=== PATIENT | male | born 1980 | race Two or more races ===

== ENCOUNTER 2024-12-23 17:24 | Emergency (ER) | payer MEDICAID, SELFPAY ==
[2024-12-23] VITALS (7 sets, daily range): BP systolic 100–112; BP diastolic 62–75; PULSE 60–104; RESP 16–19; TEMP 36.7–37; O2SAT 95–98; BMI 30.3
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
[2024-12-23 18:36] LABS: Basophils # (Auto) 0.0 Thou/mm3 (0.0-0.2); Basophils % (Auto) 0 % (0-2.5); Eosinophils # (Auto) 0.1 Thou/mm3 (0.0-0.5); Eosinophils % (Auto) 3 % (0-10); Hematocrit 42.7 % (41.0-53.0); Hemoglobin 15.0 g/dL (13.5-16.0); Immature Granulocytes Auto 0.04 Thou/mm3 (0.00-0.00); Lymphocytes # (Auto) 1.6 Thou/mm3 (1.0-4.8); Lymphocytes % (Auto) 43 % (10-50); Mean Corpuscular HGB Conc 35.1 g/dl (31.0-37.0); Mean Corpuscular Hemoglobin 30.1 pg (25.0-35.0); Mean Corpuscular Volume 86 fL (80-100); Monocytes # (Auto) 0.4 Thou/mm3 (0.0-0.8); Monocytes % (Auto) 12 % (0-12); Neutrophils # (Auto) 1.5 Thou/mm3 (1.8-7.7); Neutrophils % (Auto) 41 % (37-80); Nucleated Red Blood Cell # 0.00 Thou/mm3 (0.00-0.00); Nucleated Red Blood Cell % 0 /100 WBC (0); Platelet Count 149 Thou/mm3 (140-440); RDW Standard Deviation 39.1 fL (35.1-43.9); Red Blood Count 4.98 Miln/mm3 (4.50-5.90); White Blood Count 3.7 Thou/mm3 (3.8-10.6)
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
[2024-12-23 18:55] LABS: Alanine Aminotransferase 54 U/L (10-49); Albumin, Serum 3.8 gm/dL (3.5-5.0); Albumin/Globulin Ratio 1.6 (1.2-2.2); Alkaline Phosphatase 99 U/L (46-116); Anion Gap 11 (7-16); Aspartate Amino Transferase 52 U/L (0-34); BUN/Creatinine Ratio 17 Ratio (12-20); Bilirubin,Total 0.4 mg/dL (0.3-1.2); Blood Urea Nitrogen 19 mg/dL (9-23); Calcium 9.2 mg/dL (8.3-10.6); Calcium (Corrected) 9.4 mg/dL (8.5-10.1); Carbon Dioxide 24.2 mMol/L (20.0-31.0); Chloride 110 mMol/L (98-107); Creatinine (Component) 1.1 mg/dL (0.6-1.3); Estimated Creatinine Clearance 96.8 mL/min (>60); Globulin 2.4 gm/dL (2.3-3.5); Glucose 177 mg/dL (74-106); Lipase 36 U/L (12-53); Osmolality,Calculated 294 (275-295); Potassium 3.8 mMol/L (3.4-5.1); Sodium 145 mMol/L (136-145); Total Protein 6.2 gm/dL (5.7-8.2); eGFR > 60 See Note
[2024-12-23 19:00] LABS: INR 1.0 (0.9-1.3); Prothrombin Time 11.2 Seconds (9.0-12.2)
[2024-12-23] MEDS: KETOROLAC INJ 30 MG/ML VIAL IVP (19:06)
[2024-12-23] MEDS: MORPHINE SULF INJ 10 MG/ML VIAL 4 MG IVP (19:07)
[2024-12-23 20:03] LABS: Collection Type, Urine Clean Catch
[2024-12-23 20:14] LABS: Bilirubin,Urine Negative (Negative); Blood,Urine Trace (Negative); Clarity,Urine Clear (Clear/Hazy); Color,Urine Lt-Yellow (Lt Yel-Yel); Culture Indicated,Urine Not Indicated; Glucose, Urine Negative (Negative); Ketones,Urine Negative (Negative); Leukocyte Esterase,Urine Negative (Negative); Nitrite,Urine Negative (Negative); PH,Urine 6.5 (5.0-7.0); Protein,Urine Negative (Neg - Trace); RBC,Urine 2 /hpf (0-3); Specific Gravity,Urine 1.043 (1.001-1.035); Squamous Epithelial Cell,Urine < 1 /hpf (0-5); Urobilinogen,Urine Negative mg/dL (0.0-1.0); WBC,Urine 1 /hpf (0-5)
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
[2024-12-24] VITALS (10 sets, daily range): BP systolic 89–127; BP diastolic 62–83; PULSE 56–72; RESP 17–19; TEMP 36.7–37.2; O2SAT 94–98
--- NOTE | 2024-12-24 00:18 | PC.NURSE ---
Per [facility] they recommend to do the esophagram be done in the morning as recommended by CT dictation.
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
[2024-12-24] MEDS: SODIUM CHLORIDE 0.9% 1000 ML 1,000 ML 999 ML IV (03:02)
[2024-12-24] MEDS: ONDANSETRON INJ 2 MG/ML INJ 2 ML 4 MG IVP (03:03)
[2024-12-24] MEDS: ACETAMINOPHEN w/COD 300-30 TABLET 2 TAB PO (03:04)
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
--- NOTE | 2024-12-24 08:35 | PC.NURSE ---
called X ray 2307, Hesham states that DR. Valdez is not in yet, pt. should have his study done within the hour. Informed pt. and pt.'s son.
--- NOTE | 2024-12-24 09:31 | PC.NURSE ---
Darinel here to take pt. to X ray.
--- NOTE | 2024-12-24 10:52 | PC.NURSE ---
Son went home and pt.'s is bedside.
--- NOTE | 2024-12-24 12:19 | PC.CM ---
Addendum entered by Candy Allen RN 12/24/24 12:39: I received a call back from the transfer nurse at [facility]. She states Dr. Cortes who was consulted reviewed the report from today and he states patient's exam is negative and patient can be discharged to home. I called Dr. Jackson and I provided here with the information. Original Note: I received a call from Dr. Jackson asking me to contact [facility]. I called and let [facility] know that we did the esophogram and Dr. Jackson would like to speak to their doctor. I was asked to fax over the report and they were going reach out to [facility] trauma doctor integration lead for today.
--- NOTE | 2024-12-24 12:45 | PC.NURSE ---
Dr. Jackson is bedside talking with pt. and pt.'s .
== END 2024-12-24 13:55 | disposition home or self-care (01) ==
PROVIDERS: Emergency Provider Emergency Medicine; PCP Family Medicine
DX: S06.9X9A Unspecified intracranial injury with loss of consciousness of unspecified duration, initial encounter (principal); S30.811A Abrasion of abdominal wall, initial encounter; M25.552 Pain in left hip; R32 Unspecified urinary incontinence; V49.40XA Driver injured in collision with unspecified motor vehicles in traffic accident, initial encounter; Y92.008 Other place in unspecified non-institutional (private) residence as the place of occurrence of the external cause
CPT/HCPCS: 36415; 70450; 71260; 72125; 74177; 74220; 80053; 81001; 83690; 85025; 85610; 99284; A4649; J1885; J2270; J2405; J7030; Q9963; Q9967; A9270